=== PATIENT | female | born 1980 ===

== ENCOUNTER → 2017-08-24 | Outpatient (CLI) | payer OTHER ==
[2017-08-27 12:54] LABS: HPV Genotype 16 Not Detected (NOTDET); HPV Genotype 18 Not Detected (NOTDET)
[2017-08-29 08:32] LABS: HPV High Risk Other Not Detected (NOTDET)
== END ==
LOC: LAB 17:05
PROVIDERS: Registered Nurse Community Health
DX: Z12.4 Encounter for screening for malignant neoplasm of cervix (principal)
CPT/HCPCS: 87624; G0123

== ENCOUNTER → 2022-04-22 | Outpatient (CLI) | payer OTHER ==
[2022-04-23 15:11] LABS: HPV 16 Negative (Negative); HPV 18 Negative (Negative); HPV OTHER HR TYPES Negative (Negative)
== END ==
LOC: LAB 14:11 → LAB SHORT 14:11
PROVIDERS: Registered Nurse Community Health
DX: Z01.419 Encounter for gynecological examination (general) (routine) without abnormal findings (principal)
CPT/HCPCS: 87624; G0123

== ENCOUNTER → 2022-12-23 | Outpatient (CLI) | payer OTHER ==
[2022-12-23 20:29] LABS: Follicle Stimulating Hormone 1.4 mIU/ml; Luteinizing Hormone 0.5 mIU/ml
== END ==
LOC: LAB 18:55 → LAB SHORT 18:55
PROVIDERS: Registered Nurse Community Health
DX: R23.2 Flushing (principal)
CPT/HCPCS: 83001; 83002